=== PATIENT | female | born 2000 | race Caucasian/White ===

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

== ENCOUNTER 2022-12-07 12:19 | Emergency (ER) | payer BC, SELFPAY ==
[2022-12-07 12:35] VITALS: BP 102/63; PULSE 89; RESP 22; TEMP 35.8; O2SAT 100
--- NOTE | 2022-12-07 12:57 | ED.GENADULT ---
HPI - General Adult General Chief complaint: Nausea/Vomiting/Diarrhea Stated complaint: Nausea Time Seen by Provider: 12/07/22 12:52 Source: patient, family, RN notes reviewed and old records reviewed Mode of arrival: ambulatory Limitations: no limitations History of Present Illness HPI narrative: 22 year old female who presents to [facility] with spouse and child with complaints of nausea and vomiting for the past 6 days, is able to keep down liquids and is voiding. Patient reports ulcer 3 years ago and was placed on Prilosec and Zofran and symptoms resolved. Patient reports that she recently had tooth pulled and was placed on Amoxicillin and Ibuprofen 800mg and had to stop taking it because it was hurting her stomach. Patient reports no bloody emesis or any dark stools. MD complaint: nausea and vomiting Onset (ago): day(s) (6) Location: abdomen (epigastric burning and soreness) Severity scale (1-10): 2 Treatments prior to arrival: none Related Data Allergies Allergy/AdvReac Type Severity Reaction Status Date / Time No Known Allergies Allergy Verified 12/07/22 12:45 Review of Systems Review of Systems: CONSTITUTIONAL: Denies fever, chills, or sweats. ENT: Denies rhinorrhea, congestion, sore throat, or otalgia. CARDIOVASCULAR: Denies chest pain, palpitations, or edema. RESPIRATORY: Denies cough or dyspnea. GASTROINTESTINAL: Reports epigastric abdominal pain and burning, nausea, vomiting, no diarrhea. GENITOURINARY: Denies dysuria or hematuria. SKIN: Denies rash or itching. MUSCULOSKELETAL: Denies back pain, joint pain, or myalgia. NEUROLOGIC: Denies headache, numbness, or weakness. All systems reviewed & are unremarkable except as noted in HPI and below PMFSH Past Medical History Medical History (Updated 12/08/22 @ 09:03 by Cassidy Purdy NP) Anxiety Depression Gastric ulcer History of gastroesophageal reflux (GERD) Surgical History Surgical History No significant past surgical history Family History Family History (Updated 05/20/19 @ 11:37 by PAYTON Perez) Father Asthma Hypertension Sibling Asthma Social History Social History (Updated 05/20/19 @ 11:37 by PAYTON Perez) Smoking status: Former smoker Second hand tobacco smoke exposure: No (Patient says she quit smoking a year ago) Alcohol intake: never Substance use: never Living arrangements: with family Occupation/Education: student Gender identity (if verbalized by the patient): Female Comments At time of signature, agree with nursing past medical, surgical, social and family history. There is no relevant family history pertinent to the presenting complaint Exam Narrative: GENERAL: Well-appearing, well-nourished, and in no acute distress. HEAD: Normocephalic, atraumatic. EYES: PERRLA, conjunctivae clear, and EOMI. ENT: Nares clear. Mucous membranes moist. Oropharynx without edema, erythema, or lesions. Tonsils not enlarged and without exudate. NECK: Supple. No lymphadenopathy CHEST: Speaks in full sentences. No respiratory distress.SAO2 100% on room air HEART: Regular rate and rhythm. ABDOMEN: Soft, flat, nondistended. No guarding, rebound tenderness, or rigid. No pulsatilla masses. Bowel sounds present in all four quadrants. No organomegaly. Negative Ghotra?s sign. No periumbilical tenderness. No Supra public tenderness or distension. Good femoral pulses bilaterally. No hernia noted. No scars or surface trauma. positive nausea and vomiting SKIN: Warm, dry, no rash. NEURO:? Alert and oriented x3. PSYCH: Normal mood and affect Course Course Emergency Course: Patient is aware of diagnosis, understands and agrees to treatment plan.? Anticipatory guidance given.? Patient agrees to follow-up as directed and is aware of reasons to seek care at the emergency department. Portions of this record may have been created with voice rec
== END 2022-12-07 13:18 | disposition home or self-care (01) ==
PROVIDERS: Emergency Provider Registered Nurse
DX: K21.00 Gastro-esophageal reflux disease with esophagitis, without bleeding (principal); Z87.891 Personal history of nicotine dependence
CPT/HCPCS: 99213; G0463